=== PATIENT | female | born 1980 | race Caucasian/White ===

== ENCOUNTER 2016-12-22 22:03 | Emergency (ER) | payer OTHER ==
[2016-12-22 22:05] VITALS: BMI 25.4
[2016-12-22] MEDS ORDERED: Sodium Chloride 0.9% 1,000 ML IV STA (23:20)
[2016-12-23 00:01] LABS: ADD MANUAL DIFF? NO
[2016-12-23 00:06] LABS: URINE BILIRUBIN NEGATIVE (NEGATIVE); URINE BLOOD MODERATE (NEGATIVE); URINE GLUCOSE (UA) NEGATIVE (NEGATIVE); URINE KETONE 15 mg/dL (NEGATIVE); URINE LEUKOCYTE ESTERASE NEGATIVE Leu/uL (NEGATIVE); URINE PROTEIN NEGATIVE mg/dL (<30 mg/dL); URINE UROBILINOGEN 0.2 E.U./dL (<1 E.U./dL)
[2016-12-23 00:09] LABS: BASO # 0.03 [, K/mm3] (0.0-2.0); BASO % 0.2 % (0.0-3.0); EOS # 0.1 (0.0-0.7); EOS % 1.1 % (1.5-5.0); GRAN # 8.34 (1.4-6.5); GRAN % 66.6 % (50.0-68.0); LYMPH # 3.5 (1.2-3.4); LYMPH % 27.8 % (22.0-35.0); MEAN CELL VOLUME 89.7 fL (80.0-105.0); MEAN CORPUSCULAR HEMOGLOBIN 30.6 pg (25.0-35.0); MEAN CORPUSCULAR HGB CONC 34.1 g/dl (31.0-37.0); MEAN PLATELET VOLUME 9.8 fl (7.0-11.0); MONO # 0.5 (0.1-0.6); MONO % 4.3 % (1.0-6.0); PLATELET COUNT 243 [, 10^3/uL] (120.0-450.0); RED CELL DISTRIBUTION WIDTH 13.5 % (11.5-14.5); URINE APPEARANCE CLEAR (CLEAR); URINE COLOR YELLOW (YELLOW); WHITE BLOOD COUNT 12.5 [, 10^3/ul] (4.5-11.0)
[2016-12-23 00:16] LABS: ALB/GLOB RATIO 1.3 (1.1-1.8); ALKALINE PHOSPHATASE 80 U/L (38-133); ALT/SGPT 28 U/L (7-56); AST/SGOT 20 U/L (15-39); BILIRUBIN,TOTAL 0.7 mg/dL (0.2-1.3); BLOOD UREA NITROGEN 12 mg/dL (7-21); CALCIUM 9.5 mg/dL (8.4-10.5); CARBON DIOXIDE 24 mmol/L (21-33); CHLORIDE 105 mmol/L (95-110); GFR AFRICAN-AMERICAN > 60; GLUCOSE,RANDOM 88 mg/dL (70-110); LIPASE 58 U/L (23-300); POTASSIUM 4.5 mmol/L (3.6-5.0); SODIUM 140 mmol/L (132-148); TOTAL PROTEIN 8.1 g/dL (5.8-8.3)
[2016-12-23 00:22] LABS: URINE WBC 0 - 2 /hpf (0-6)
[2016-12-23 00:23] LABS: URINE BACTERIA SMALL (NEG)
--- NOTE | 2016-12-23 02:03 | ED PDOC ---
Arrival/HPI - General Historian: Patient - General Chief Complaint: Back Pain Time Seen by Provider: 12/22/16 23:20 - History of Present Illness Narrative History of Present Illness (Text): 12/23/16 02:29 36yr old female presents today with right sided back pain. pt states pain gradually increased after work. pt describes the pain and sharp stabbing pain to the right flank. denies cp or sob. no vomiting/diarrhea denies abdominal pain. pt denies any recent trauma or injury. pt states pain has been increasing and worsening sincethe pain started. no medications have been taken for pain. pt c/o urinary frequency x 1 day. denies dysuria. denies hematuria. (Elba Escobar) Past Medical History - Provider Review Nursing Documentation Reviewed: Yes - Travel History Have you recently traveled outside [place] w/in the past 3 mons?: No - Infectious Disease Hx of Infectious Diseases: None - Tetanus Immunization Tetanus Immunization: Unknown - Psychiatric Hx Substance Use: No - Anesthesia Hx Anesthesia: No Family/Social History - Physician Review Nursing Documentation Reviewed: Yes Family/Social History: Unknown Family HX Smoking Status: Current Some Days Smoker Hx Alcohol Use: Yes Frequency of alcohol use: Socially Hx Substance Use: No Allergies/Home Meds Allergies/Adverse Reactions: Allergies No Known Allergies Allergy (Verified 12/22/16 22:05) Review of Systems - Review of Systems Constitutional: absent: Fatigue, Fevers Eyes: absent: Vision Changes, Photophobia, Eye Pain Respiratory: absent: SOB, Cough Cardiovascular: absent: Chest Pain, Palpitations Gastrointestinal: absent: Abdominal Pain, Nausea, Vomiting Genitourinary Female: absent: Dysuria, Frequency Musculoskeletal: Back Pain. absent: Neck Pain Skin: absent: Rash, Pruritis Neurological: absent: Headache, Dizziness Psychiatric: absent: Anxiety, Depression Physical Exam Vital Signs Reviewed: Yes Temperature: Afebrile Blood Pressure: Normal Pulse: Regular Respiratory Rate: Normal Appearance: Positive for: Well-Appearing, Non-Toxic, Comfortable Pain Distress: None Mental Status: Positive for: Alert and Oriented X 3 - Systems Exam Head: Present: Atraumatic Mouth: Present: Moist Mucous Membranes Neck: Present: Normal Range of Motion Respiratory/Chest: Present: Clear to Auscultation, Good Air Exchange. No: Respiratory Distress, Accessory Muscle Use Cardiovascular: Present: Regular Rate and Rhythm, Normal S1, S2. No: Murmurs Abdomen: Present: Normal Bowel Sounds. No: Tenderness, Distention, Peritoneal Signs, Rebound, Guarding Back: Present: Normal Inspection, Paraspinal Tenderness (minimal right sided paraspinal tenderness lumbar and thoracic. ). No: CVA Tenderness, Midline Tenderness Upper Extremity: Present: Normal Inspection, Normal ROM Lower Extremity: Present: Normal Inspection, Normal ROM Neurological: Present: GCS=15, Speech Normal Skin: Present: Warm, Dry, Normal Color. No: Rashes Psychiatric: Present: Alert, Oriented x 3 Medical Decision Making ED Course and Treatment: 12/23/16 03:02 Patient is nontoxic well appearing with stable vital signs presenting with right sided back pain CBC wbc; 12.5 CMP wnl Urinalysis + blood, + small bacteria, trace leukocytes crx; wnl CAT scan:FINDINGS: Lower thorax: <No significant pleural effusions.> ABDOMEN: Liver: Unremarkable. Gallbladder and bile ducts: Unremarkable. No calcified stones. No ductal dilation. Pancreas: Unremarkable. No ductal dilation. Spleen: Unremarkable. No splenomegaly. Adrenals: Unremarkable. No mass. Kidneys and ureters: Suspect punctate right nephrolithiasis. No hydronephrosis. Stomach and bowel: Lack of oral contrast opacification limits evaluation of the bowel. No dilated bowel loops are identified. Stool is present throughout the colon and rectum, correlate with history of constipation. Appendix: No findings to suggest acute appendicitis. PELVIS: Bladder: Partially contracted Reproductive: 3.6 cm left adnexal cystic structure. ABDOMEN and PELVIS: Intraperitoneal space: Unremarkable. No free air. No significant fluid collection. Bones/joints: No acute fracture. No dislocation. Soft tissues: Unremarkable. Vasculature: Unremarkable. No abdominal aortic aneurysm. Lymph nodes: Unremarkable. No enlarged lymph nodes. IMPRESSION: 1. 3.6 cm left adnexal cystic structure. 2. Suspect punctate right nephrolithiasis. No hydronephrosis. 3.No findings to suggest acute appendicitis.Stool is present throughout the colon and rectum, correlate with history of constipation. Patient reassessment: after toradol pt pain has resolved. vitals remain stable; will d/c home home to f/u with urologist and Pmd. will d/c with motrin, flexeril for muscular component of pain; will cover with keflex for possible uti. urine culture pending. Discussed all results with patient in depth. advised f/u with urologist. advised immediate return if symptoms worsen,persist or if new symptoms develop. Patient verbalizes understanding of discharge instructions and need for immediate followup. all aspects of this case were discussed the attending of record. Impression: back pain, uti, nephrolithiasis Motrin every 6 hours as needed for pain flexeril q8h prn muscle spasms keflex; bid x 10 days for UTI. Follow up with primary care physician within the next 2 days Follow up with urologist within the next 2 days. Return immediately if symptoms worsen persist or if new symptoms develop: High fevers, increasing pain, vomiting, diarrhea or any other concerning symptoms develop (Azoia,Elba T) - Lab Interpretations Lab Results: 12/22/16 23:48 12/22/16 23:48 Lab Results 12/22/16 23:48: WBC 12.5 H, RBC 4.35, Hgb 13.3, Hct 39.0, MCV 89.7, MCH 30.6, MCHC 34.1, RDW 13.5, Plt Count 243, MPV 9.8, Gran % 66.6, Lymph % (Auto) 27.8, [place] % (Auto) 4.3, Eos % (Auto) 1.1 L, Baso % (Auto) 0.2, Gran # 8.34 H, Lymph # 3.5 H, [place] # 0.5, Eos # 0.1, Baso # 0.03 12/22/16 23:48: Sodium 140, Potassium 4.5, Chloride 105, Carbon Dioxide 24, Anion Gap 16, BUN 12, Creatinine 0.7, Est GFR ( Amer) > 60, Est GFR (Non- Af Amer) > 60, Random Glucose 88, Calcium 9.5, Total Bilirubin 0.7, AST 20, ALT 28, Alkaline Phosphatase 80, Total Protein 8.1, Albumin 4.5, Globulin 3.6, Albumin/Globulin Ratio 1.3, Lipase 58 12/22/16 23:48: Urine Color Yellow, Urine Appearance Clear, Urine pH 6.0, Ur Specific [place] 1.025, Urine Protein Negative, Urine Glucose (UA) Negative, Urine Ketones 15 H, Urine Blood Moderate H, Urine Nitrate Negative, Urine Bilirubin Negative, Urine Urobilinogen 0.2, Ur Leukocyte Esterase Negative, Urine RBC 1 - 3, Urine WBC 0 - 2, Ur Epithelial Cells 1 - 3, Urine Bacteria Small, Urine HCG, Qual Negative - RAD Interpretation Radiology Orders: 12/23/16 00:10 ABD & PELVIS W/O PO OR IV CONT [CT] Stat 12/23/16 01:39 CHEST PORTABLE [RAD] Stat - Medication Orders Current Medication Orders: Discontinued Medications Cephalexin Monohydrate (Keflex) 500 mg PO STAT STA PRN Reason: Protocol Stop: 12/23/16 02:25 Last Admin: 12/23/16 02:32 Dose: 500 mg Sodium Chloride (Sodium Chloride 0.9%) 1,000 mls @ 999 mls/hr IV .Q1H1M STA Stop: 12/23/16 00:20 Last Admin: 12/22/16 23:52 Dose: 999 mls/hr Ketorolac Tromethamine (Toradol) 30 mg IVP STAT STA Stop: 12/22/16 23:21 Last Admin: 12/22/16 23:52 Dose: 30 mg Disposition/Present on Arrival - Present on Arrival Any Indicators Present on Arrival: No History of DVT/PE: No History of Uncontrolled Diabetes: No Urinary Catheter: No History of Decub. Ulcer: No History Surgical Site Infection Following: None - Disposition Have Diagnosis and Disposition been Completed?: Yes Disposition Time: 02:02 Patient Plan: Discharge - Disposition Diagnosis: Back pain, Nephrolithiasis Disposition: HOME/ ROUTINE Condition: GOOD Discharge Instructions (ExitCare): Kidney Stones (ED), Back Pain (ED) Additional Instructions: Motrin every 6 hours as needed for pain Flexeril one tablet every 8 hours as needed for muscle spasms: May cause drowsiness keflex; 1 capsule twice daily x 10 days. Followup with the urologist within the next 2 days Followup with primary care physician within the next 2 days Return if symptoms worsen persist or if new symptoms develop Prescriptions: Cephalexin [Keflex] 500 mg PO BID #20 capsule Cyclobenzaprine [Cyclobenzaprine HCl] 10 mg PO Q8 #10 tab Ibuprofen [Motrin] 600 mg PO Q6H PRN #20 tab PRN Reason: pain/fever reduction Referrals: Jo Elder MD [Staff Provider] - Follow up with primary Marcin Jama MD [Staff Provider] - Follow up with primary Forms: WORK NOTE
[2016-12-23 02:31] VITALS: BP 115/71; PULSE 79; RESP 16; TEMP 97.9; O2SAT 99
--- NOTE | 2016-12-23 07:54 | RAD ---
HISTORY: chest pain COMPARISON: No prior. FINDINGS: LUNGS: No active pulmonary disease. PLEURA: No significant pleural effusion identified, no pneumothorax apparent. CARDIOVASCULAR: Normal. OSSEOUS STRUCTURES: No significant abnormalities. VISUALIZED UPPER ABDOMEN: Normal. OTHER FINDINGS: None. IMPRESSION: No active disease.
--- NOTE | 2016-12-23 10:31 | CT ---
PROCEDURE: CT Abdomen and Pelvis without intravenous contrast HISTORY: right sided back pain COMPARISON: None. TECHNIQUE: Without contrast. Contrast Dose: Radiation dose: Total exam DLP = 426 mGy-cm. This CT exam was performed using one or more of the following dose reduction techniques: Automated exposure control, adjustment of the mA and/or kV according to patient size, and/or use of iterative reconstruction technique. FINDINGS: LOWER THORAX: Unremarkable. LIVER: Unremarkable. No gross lesion or ductal dilatation. GALLBLADDER AND BILE DUCTS: Unremarkable. PANCREAS: Unremarkable. No gross lesion or ductal dilatation. SPLEEN: Unremarkable. ADRENALS: Unremarkable. No mass. KIDNEYS AND URETERS: Unremarkable. No hydronephrosis. No solid mass. VASCULATURE: Unremarkable. No aortic aneurysm. BOWEL: Unremarkable. No obstruction. No gross mural thickening. APPENDIX: Unremarkable. Normal appendix. PERITONEUM: Unremarkable. No free fluid. No free air. LYMPH NODES: Unremarkable. No enlarged lymph nodes. BLADDER: Unremarkable. REPRODUCTIVE: There is a 3 cm left adnexal cyst BONES: No acute fracture. OTHER FINDINGS: The report concurs with the preliminary [facility] report IMPRESSION: No acute findings
== END 2016-12-23 02:37 | disposition home or self-care (01) ==
LOC: ED 22:03
DX: N20.0 Calculus of kidney (principal); M54.9 Dorsalgia, unspecified
CPT/HCPCS: 71010; 74176; 80053; 81001; 83690; 84703; 85025; 96374; 99283; J1885; J7040